=== PATIENT | female | born 2000 | race Caucasian/White ===

== ENCOUNTER → 2021-04-25 09:24 | Outpatient (CLI) | payer OTHER, SELFPAY ==
--- NOTE | 2021-04-25 09:27 | DI.US.S_ITS ---
PROCEDURE: US PELVIC COMPLETE INDICATIONS: PELVIC PAIN AND DYSMENORRHEA TECHNIQUE: Real-time scanning was performed of the pelvic organs, with image documentation. Additional endovaginal scanning was necessary due to incomplete visualization of the adnexal and endometrial structures by transabdominal scanning. COMPARISON: None. FINDINGS: Uterus: Uterus is normal in size at 6.2 x 4.6 x 3.6 cm. The endometrium measures 2 mm in combined thickness. Incidental note is made of nabothian cysts. Ovaries: The right ovary measures 4.9 x 3.5 x 2.6 cm and demonstrates a likely hemorrhagic cyst that measures 3.1 x 2.6 x 2.1 cm. The left ovary measures 3.2 x 2.6 x 1.7 cm. The ovaries otherwise have a normal sonographic appearance. No adnexal masses are seen. Other: No pathologic free abdominal or pelvic fluid. IMPRESSION: Likely 3.1 cm hemorrhagic cyst of the right ovary. If it would be clinically appropriate, a followup pelvic ultrasound could be considered in 6 weeks to assure resolution/ improvement. Dictated by: Jose Vides M.D. on 04/25/2021 at 9:15 Approved by: Jose Vides M.D. on 04/25/2021 at 9:17
== END ==
PROVIDERS: Referring Provider Obstetrics & Gynecology; Visit Provider Obstetrics & Gynecology
DX: R10.2 Pelvic and perineal pain (principal); N94.6 Dysmenorrhea, unspecified
CPT/HCPCS: 76830; 76856

== ENCOUNTER → 2021-07-05 16:32 | Outpatient (CLI) | payer OTHER, SELFPAY ==
[2021-07-05 17:27] LABS: COVID19 -Nasal RAPID Negative (Negative)
== END ==
PROVIDERS: Visit Provider Obstetrics & Gynecology
DX: Z01.812 Encounter for preprocedural laboratory examination (principal); Z20.822 Contact with and (suspected) exposure to COVID-19
CPT/HCPCS: 87635

== ENCOUNTER 2021-07-06 11:49 | Day surgery (SDC) | payer OTHER, SELFPAY ==
[2021-07-03 09:40] VITALS: BMI 23.3
[2021-07-06] VITALS (7 sets, daily range): BP systolic 102–118; BP diastolic 62–75; PULSE 57–82; RESP 14–19; TEMP 35.9–37.1; O2SAT 98–100; BMI 23.3
[2021-07-06] MEDS: LACTATED RINGERS 1,000 ML 42 ML IV (12:26)
--- NOTE | 2021-07-06 13:18 | PM.PREOP ---
Pre-operative Note COVID-19 COVID-19 status: Negative Result date/Date tested (Pos, Neg/Pending): 07/05/21 Interval Note History & Physical reviewed/Exam performed by Physician: Yes Changes to H&P: No
--- NOTE | 2021-07-06 13:44 | SUR.OPER ---
Lithotomy on padded OR bed, head on pillow, arms padded with gelpad and tucked at patient's dies. . Legs secured in padded yellow fins stirrups.
[2021-07-06] MEDS: BUPIVACAINE 0.5% W/ EPI (PF) 30 ML VIAL INJ (13:51)
[2021-07-06] MEDS: fentaNYL 100 MCG/2 ML INJ IV (14:21)
--- NOTE | 2021-07-06 14:25 | PM.GYNOP.1 ---
Operative Date/Time/Diagnoses Date of procedure: 07/06/21 Time of procedure: 13:30 Pre-op diagnosis: Chronic pelvic pain Dysmenorrhea Post-op diagnosis: same Procedure & Clinicians Procedure: Procedures Operation Date: 07/06/21 12:45 Actual Procedure Side Surgeon john RÍOS Laparoscopy Not Applicable Cedric Fink MD Indications: Martha is a 21-year-old G0, LMP 05/31/2021 who presented last month for evaluation of progressively severe pelvic pain and cramps with her menses.? The patient experienced menarche at age 10 and had regular menstrual cycles throughout her early life.? Her cramps during those periods were minimal, did not require treatment and she did not miss school or other engagements because of menstrual pain.? At approximately age 14 she began using contraception consisting of the patch which she discontinued because it kept falling off and oral contraceptives which she discontinued because she kept forgetting to take them.? At age 17 she had a Mirena IUD inserted and had no issues with it whatsoever.? She became essentially on menorrhea with only occasional spotting.? Unfortunately approximately 3 years after its insertion, the patient began having infrequent episodes of bleeding which were associated with severe pain.? These began our on her initial deployment in the [place] and resulted in her losing approximately 40 lb during that time.? She had extensive bright red bleeding, clots, and dark red blood with the pain resulting in numerous visits to sick call and limitations of duty.? 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 She return from deployment and in late December 2020 her IUD was removed and she was initiated on oral contraceptives which she only took for about 3 weeks.? Since that time her periods have become even more irregular with approximately 3-5 days of flow so she had with bloating and severe pain which required hospitalization several weeks ago at [facility].? No diagnosis was made and the patient's pain has continued along with the irregular bleeding.? She also notes that in the last year she has had progressively severe deep dyspareunia which is new.? She denies any post coital bleeding or intermenstrual spotting.? She is not now using any formal contraception and has not conceived in the last 4 months.? Patient's Pap smears have all been normal with her most recent Pap in 2019.? Patient does have a family history of a maternal grandmother with ovarian cancer but no breast cancer in the family.? Pelvic ultrasound performed 04/25/2021 only shows a 3.1 cm hemorrhagic cyst of the right ovary.? After discussion of all options the patient desires to proceed with diagnostic laparoscopy and probable fulguration/excision of pelvic endometriosis.? She is currently scheduled to have her surgery performed at [facility] on 07/06/2021 and presents today for her scheduled surgery. Surgeon: Cedric Fink Anesthesia Type: General Operative Notes Findings: The uterus is midplane and normal in size and shape. There is a 0.5 cm subserosal fibroid arising from the right anterolateral aspect of the fundus. Both fallopian tubes appeared to be normal in their entirety and if Saumya a appear normal bilaterally. Both ovaries are completely unremarkable, normal size, with no suggestion of internal cyst formation and no abnormalities on the ovarian surfaces. The ovarian fossa on both sides appear normal. There was no evidence of adhesions or endometriosis in the posterior cul-de-sac. There are occasional scattered clear blebs on the peritoneal surfaces in the posterior cul-de-sac but no scarring or classic powder rich seen. The anterior cul-de-sac is similarly unremarkable. The appendix was fully visualized and normal in appearance. The upper abdomen was inspected laparoscopically and also seen to be completely normal to laparoscopic visualization. Closure Type: primary Specimen(s): none Estimated blood loss (mL): 5 Blood products transfused: none Procedure in detail: With the patient under satisfactory general endotracheal anesthesia in the modified dorsal lithotomy position, the perineum vagina and abdomen were prepped and draped in the usual manner for laparoscopy. A sponge stick was inserted in the vagina. A pre-surgical safety time-out was then taken in accordance with [facility] protocols. The umbilicus was then infiltrated with 0.5% Marcaine with epinephrine and a 5 mm vertical umbilical incision was made. A Veress needle was then used to insufflate the abdomen with carbon dioxide once insufflated a 5 mm bladeless trocar and sleeve were inserted through the umbilical incision. Presence of the port inside the abdominal cavity was confirmed laparoscopically. A 2nd 3rd 5 mm laparoscopic port was placed in the right and left mid quadrants using a similar technique. Using a 3 puncture technique and a sponge stick in the vagina for mobilization of the cervix, the entire abdomen and pelvis were thoroughly inspected with the findings as noted previously. There being no findings which were clinically consistent with the patient's pain, no biopsies or fulguration was performed. The pelvis and abdomen were photographically documented and the operation was then terminated by venting of the pneumoperitoneum and removal of the port sleeves. Each port incision was then closed using 4-0 Monocryl with an inverted interrupted stitch and appropriate dressings were applied. Patient was then awakened and transferred to the PACU for a period of observation and recovery. Complications experience none, EBL 5 cc. Complications: none Post-operative Condition: stable Disposition: PACU Plan for aftercare: Routine postoperative care. Follow-up will be in 2 weeks.
[2021-07-06] MEDS: OXYCODONE/ACETAMINOPHEN 5/325 TABLET 1 TAB PO (14:41)
== END 2021-07-06 15:03 | disposition home or self-care (01) ==
PROVIDERS: Referring Provider Obstetrics & Gynecology; Visit Provider Obstetrics & Gynecology
PROC: (CPT 49320; principal; 2021-07-06 12:45)
DX: N94.6 Dysmenorrhea, unspecified (principal); F17.210 Nicotine dependence, cigarettes, uncomplicated
CPT/HCPCS: 49320; 81025; J0330; J1100; J1885; J2405; J2704; J3010

== ENCOUNTER 2021-07-10 17:41 | Emergency (ER) | payer OTHER, SELFPAY ==
[2021-07-10 18:08] VITALS: BP 137/65; PULSE 85; RESP 20; TEMP 36.8; O2SAT 98; BMI 22.8
--- NOTE | 2021-07-10 18:12 | DI.RAD.S_ITS ---
PROCEDURE: XR CHEST 1V INDICATIONS: chest pain TECHNIQUE: One view of the chest was acquired. COMPARISON: None. FINDINGS: Surgical changes and devices: None. Lungs and pleura: Lungs are clear. No pleural effusions or pneumothorax. Mediastinum: Mediastinal contours appear normal. Heart size is normal. Bones and chest wall: No suspicious bony lesions. Overlying soft tissues appear unremarkable. IMPRESSION: No acute cardiopulmonary abnormality Dictated by: Jersey Nava M.D. on 07/10/2021 at 18:49 Approved by: Jersey Nava M.D. on 07/10/2021 at 18:50
[2021-07-10 18:44] LABS: Add Manual Diff / Slide Review NO; Basophils Absolute Auto 0 /uL (0-100); Basophils Percent Auto 0.5 % (0-2); Eosinophils Absolute Auto 300 /uL (0-450); Eosinophils Percent Auto 3.8 % (2-4); Hematocrit 40.8 % (36-46); Hemoglobin 14.1 g/dL (12.0-16.0); Lymphocytes Absolute Auto 2200 /uL (1100-4500); Lymphocytes Percent Auto 28.7 % (25-40); Mean Corpuscular HGB Conc 34.6 % (30-36); Mean Corpuscular Hemoglobin 28.4 PG (26-34); Mean Corpuscular Volume 82.1 fL (80-100); Monocytes Absolute Auto 500 /uL (0-900); Monocytes Percent Auto 6.3 % (3-14); Neutrophils Absolute Auto 4600 /uL (1500-7000); Neutrophils Percent Auto 60.7 % (50-75); Platelet Count 290 X10^3/uL (150-400); Red Blood Cell Count 4.97 X10^6/uL (4.0-5.2); Red Cell Distribution Width 12.9 % (11.6-14.8); White Blood Cell Count 7.6 X10^3/uL (4.5-11.0)
[2021-07-10 18:52] LABS: COVID19 -Nasal RAPID Negative (Negative)
[2021-07-10 19:11] LABS: Alanine Aminotransferase 20 IU/L (<35); Albumin 4.6 g/dL (3.5-5.0); Albumin Globulin Ratio 1.3 (1.0-2.8); Alkaline Phosphatase 42 U/L (38-126); Aspartate Aminotransferase 24 IU/L (14-36); BUN Creatinine Ratio 18.3 (6-22); Bilirubin Total 0.5 mg/dL (0.2-1.3); Blood Urea Nitrogen 13 mg/dL (7-17); Calcium 9.8 mg/dL (8.4-10.2); Carbon Dioxide 29 mmol/L (22-32); Chloride 103 mmol/L (98-107); Creatine Kinase 30 U/L (30-135); Estimated Glomerular Filt Rate > 60.0 mL/min (>60); Globulin 3.6 g/dL (1.7-4.1); Glucose 96 mg/dL (70-100); HEMOLYSIS 21 (0-50); Lipase 41 U/L (23-300); Magnesium 1.8 mg/dL (1.6-2.3); Sodium 136 mmol/L (137-145); Total Protein 8.2 g/dL (6.3-8.2)
[2021-07-10 19:22] LABS: Troponin I < 0.012 ng/mL (0.01-0.034)
[2021-07-10 21:03] VITALS: BP 130/83; PULSE 79; RESP 24; O2SAT 100
--- NOTE | 2021-07-10 21:19 | ED_ITS ---
HPI - Chest Pain General Chief Complaint: Chest Pain Stated Complaint: Surgery 07/06, Chest Fullness/Pain, Neck Pain Time Seen by Provider: 07/10/21 21:02 Source: patient Mode of arrival: Ambulatory Limitations: no limitations History of Present Illness HPI narrative: Patient is a 21-year-old female who less than 1 week ago had a exploratory laparoscopy for evaluation of potential endometriosis secondary to chronic pelvic pain. She states she was told that she does not have endometriosis. She does have some generalized abdominal tenderness but she feels like this is improving. Within the past couple days she has developed some chest discomfort and left-sided neck pain fullness in her chest. Has not tried anything for the symptoms prior to arrival. Is not worse with palpation or movement or breathing. Related Data Previous Rx's Medication Instructions Recorded oxycodone-acetaminophen 5 mg-325 1 tab PO Q4H PRN #12 tab 07/06/21 mg tablet (Percocet) Allergies Allergy/AdvReac Type Severity Reaction Status Date / Time No Known Drug Allergies Allergy Unverified 06/27/21 16:16 Review of Systems Constitutional Constitutional: Denies fever(s) Cardiovascular Cardiovascular: Reports system reviewed and no additional complaints, except as documented Respiratory Respiratory: Reports system reviewed and no additional complaints, except as documented Gastrointestinal Gastrointestinal: Reports as per HPI and Reports system reviewed and no additional complaints, except as documented Integumentary/Breasts Skin/Breast: Reports system reviewed and no additional complaints, except as documented Neurologic Neurologic: Reports system reviewed and no additional complaints, except as documented Hematologic/Lymphatic On Anticoagulants: No Patient History Medical History Dysmenorrhea Pelvic pain in female Family History Father Hypertension Mother Mental health problem Anxiety Sister Mental health problem Eating disorder Social History household members: significant other Smoking Status: Never smoker Smoking Status: Never smoker alcohol intake frequency: a few times a month Substance Use Type: does not use Exam Initial Vital Signs Initial Vital Signs: Vital Signs Temperature 98.2 F 07/10/21 18:08 Pulse Rate 85 07/10/21 18:08 Respiratory Rate 20 07/10/21 18:08 Blood Pressure 137/65 07/10/21 18:08 Pulse Oximetry 98 07/10/21 18:08 Const General: cooperative, healthy appearing and comfortable HENMT Head: normal to inspection and normocephalic Resp Effort & Inspection: normal respiratory effort Auscultation: clear to auscultation bilaterally Cardio Rate: regular rate Rhythm: regular rhythm GI Inspection: normal to inspection Palpation: soft, No firm, No guarding and tender Skin General: no rashes or lesions noted Neuro General: patient alert, patient awake and moves all extremities Speech: speech normal Extrem General: normal to inspection and capillary refill normal Psych Appearance: grossly normal and well kempt Course Orders Ordered: ED Orders 07/10/21 18:12 XR chest 1V Stat EKG-12 Lead Stat 07/10/21 18:15 COVID19 -Nasal swab/Pre-Proc Stat 07/10/21 18:29 Complete Blood Count AUTO DIFF Stat Comprehensive Metabolic Panel Stat Lipase Stat Magnesium Stat Troponin & CK Cardiac Panel Stat Vital Signs Vital signs: Vital Signs - 8 hr 07/10/21 21:03 Pulse Rate 79 Respiratory Rate 24 Blood Pressure 130/83 Pulse Oximetry 100 MDM - Chest Pain Lab Data Attestation: I reviewed the patient's lab results. Result diagrams: 07/10/21 18:29 07/10/21 18:29 Labs: Lab Results 07/10/21 07/10/21 07/10/21 Range/Units 18:15 18:29 18:29 WBC 7.6 (4.5-11.0) X10^3/uL RBC 4.97 (4.0-5.2) X10^6/uL Hgb 14.1 (12.0-16.0) g/dL Hct 40.8 (36-46) % MCV 82.1 (80-100) fL MCH 28.4 (26-34) PG MCHC 34.6 (30-36) % RDW 12.9 (11.6-14.8) % Plt Count 290 (150-400) X10^3/uL Neut % (Auto) 60.7 (50-75) % Lymph % (Auto) 28.7 (25-40) % [place] % (Auto) 6.3 (3-14) % Eos % (Auto) 3.8 (2-4) % Baso % (Auto) 0.5 (0-2) % Neut # (Auto) 4600 (2761-9392) /uL Lymph # (Auto) 2200 (1267-9112) /uL [place] # (Auto) 500 (0-900) /uL Eos # (Auto) 300 (0-450) /uL Baso # (Auto) 0 (0-100) /uL Sodium 136 L (137-145) mmol/L Potassium 4.0 (3.4-5.1) mmol/L Chloride 103 (98-107) mmol/L Carbon Dioxide 29 (22-32) mmol/L BUN 13 (7-17) mg/dL Creatinine 0.71 (0.52-1.04) mg/dL Estimated GFR > 60.0 (>60) mL/min BUN/Creatinine Ratio 18.3 (6-22) Glucose 96 (70-100) mg/dL Calcium 9.8 (8.4-10.2) mg/dL Magnesium 1.8 (1.6-2.3) mg/dL Total Bilirubin 0.5 (0.2-1.3) mg/dL AST 24 (14-36) IU/L ALT 20 (<35) IU/L Alkaline Phosphatase 42 (38-126) U/L Total Creatine Kinase 30 (30-135) U/L CK-MB (CK-2) TNP CK-MB (CK-2) Rel Index TNP Troponin I < 0.012 (0.01-0.034) ng/mL Total Protein 8.2 (6.3-8.2) g/dL Albumin 4.6 (3.5-5.0) g/dL Globulin 3.6 (1.7-4.1) g/dL Albumin/Globulin Ratio 1.3 (1.0-2.8) Lipase 41 (23-300) U/L SARS-CoV-2 (PCR) Negative (Negative) Imaging Data Chest x-ray: Radiologist's Impression: [address] [address] XRay Report Signed Patient: Martha Bradshaw MR#: [id number] : 2000 Acct:[id number] Age/Sex: 21 / F Date of Service: 07/10/21 Loc: ED Accession Number: [id number] ?? Procedure: XR chest 1V Ordering Provider: Aguila Ellison D.O. PROCEDURE:? XR CHEST 1V ? INDICATIONS:? chest pain ? TECHNIQUE:? One view of the chest was acquired.? ? COMPARISON:? None. ? FINDINGS:? ? Surgical changes and devices:? None.? ? Lungs and pleura:? Lungs are clear.? No pleural effusions or pneumothorax.? ? Mediastinum:? Mediastinal contours appear normal.? Heart size is normal.? ? Bones and chest wall:? No suspicious bony lesions.? Overlying soft tissues appear unremarkable.? ? IMPRESSION:? No acute cardiopulmonary abnormality ? ? Dictated by: Jersey Nava M.D. on 07/10/2021 at 18:49 ? ? Approved by: Jersey Nava M.D. on 07/10/2021 at 18:50? ECG Data Attestation: I personally reviewed and interpreted this ECG as follows: Interpretation: Sinus rhythm Ventricular rate of 98 Normal axis Normal QRS Normal QTC Inverted T-waves lead to 3 AVF and V3 No ST changes MDM Narrative Medical decision making narrative: Labs are unremarkable, chest x-ray is unremarkable, troponin is negative. Nonspecific changes on her EKG. Do suspect that her symptoms are related to her recent procedure. Low suspicion for pulmonary embolism based on her presentation today. I feel that we can hold on further workup for now. I did discuss this with her. Did discuss strict return precautions and follow-up instructions. She expressed understanding and agreement. Discharge Plan Departure Patient Disposition: Home Clinical Impression: Atypical chest pain Instructions: DI for Atypical Chest Pain Activity Restrictions/Additional Instructions: I recommend that you continue to follow all of the postoperative instructions given to you by the surgeon. Keep all of your scheduled medical appointments. Return to the emergency department for any new or worsening symptoms. Prescriptions: No Action oxycodone-acetaminophen [Percocet] 5-325 mg tablet 1 tab PO Q4H PRN (Reason: pain) Qty: 12 0RF Referrals: Wilfrido Diaz [Primary Care Provider] -
== END 2021-07-10 21:24 | disposition home or self-care (01) ==
PROVIDERS: Emergency Provider Emergency Medicine
DX: R07.89 Other chest pain (principal); Z20.822 Contact with and (suspected) exposure to COVID-19
CPT/HCPCS: 36415; 71045; 80053; 82550; 83690; 83735; 84484; 85025; 87635; 93005; 99283; 99284; C9803

== ENCOUNTER → 2021-08-28 12:25 | Outpatient (CLI) | payer OTHER, SELFPAY ==
[2021-08-28 13:05] LABS: Add Manual Diff / Slide Review NO; Basophils Absolute Auto 0 /uL (0-100); Basophils Percent Auto 0.5 % (0-2); Eosinophils Absolute Auto 100 /uL (0-450); Eosinophils Percent Auto 1.4 % (2-4); Hemoglobin 12.1 g/dL (12.0-16.0); Lymphocytes Absolute Auto 1700 /uL (1100-4500); Lymphocytes Percent Auto 25.2 % (25-40); Mean Corpuscular HGB Conc 33.6 % (30-36); Mean Corpuscular Hemoglobin 27.9 PG (26-34); Mean Corpuscular Volume 83.1 fL (80-100); Monocytes Absolute Auto 400 /uL (0-900); Monocytes Percent Auto 5.6 % (3-14); Neutrophils Absolute Auto 4600 /uL (1500-7000); Neutrophils Percent Auto 67.3 % (50-75); Platelet Count 281 X10^3/uL (150-400); Red Blood Cell Count 4.34 X10^6/uL (4.0-5.2); Red Cell Distribution Width 13.3 % (11.6-14.8); White Blood Cell Count 6.8 X10^3/uL (4.5-11.0)
[2021-08-28 13:54] LABS: HCG Quantitative /Beta subunit 8270.7 mIU/mL
[2021-08-28 14:05] LABS: Appearance Urine UA CLEAR; Bilirubin Urine UA NEGATIVE (NEGATIVE); Color Urine UA YELLOW; Glucose Urine UA NEGATIVE (Negative); Ketones Urine UA NEGATIVE (NEGATIVE); Leukocyte Esterase Urine UA NEGATIVE (NEGATIVE); Nitrite Urine UA NEGATIVE (Negative); Occult Blood Urine UA NEGATIVE (Negative); Protein Urine UA NEGATIVE (Negative); Specific Gravity Urine UA 1.015 (1.000-1.035); Urobilinogen Urine UA 0.2 E.U./dL (0.2)
[2021-08-28 17:56] LABS: Hepatitis B Surface Antigen NEGATIVE s/c (NEGATIVE); Rubella Antibody IgG 36.9 IU/mL (>15)
[2021-08-28 18:54] LABS: HIV 1 & 2 Ab/Ag 4th Gen Combo NEGATIVE (NEGATIVE); Hep C Virus Ab w/Reflex Quant NEGATIVE s/c (NEGATIVE)
[2021-08-29 04:21] LABS: RPR Screen Non Reactive (Non Reactive)
[2021-08-29 05:42] LABS: Varicella IgG Antibody 736 index (Immune >165)
== END ==
PROVIDERS: Referring Provider Obstetrics & Gynecology; Visit Provider Obstetrics & Gynecology
DX: Z34.00 Encounter for supervision of normal first pregnancy, unspecified trimester (principal)
CPT/HCPCS: 36415; 80055; 81003; 84702; 86787; 86803; 86850; 86900; 86901; 87077; 87086; 87389

== ENCOUNTER → 2021-09-21 08:50 | Outpatient (CLI) | payer OTHER, SELFPAY ==
--- NOTE | 2021-09-21 08:51 | DI.US.S_ITS ---
PROCEDURE: US OB <= 14 WEEKS FETUS INDICATIONS: Viability and Dating OB OUTSIDE/PRIOR DATING DATA: Last menstrual period (LMP): 07/27/2021 LMP-based estimated date of delivery (ISA): 05/03/2022. First dating scan (date and location): 09/21/2021. Estimated date of delivery (ISA) from first dating scan: 04/27/2022. The calculations are made using the ultrasound ISA of 04/27/2022. TECHNIQUE: Real-time scanning was performed of the fetus and maternal pelvic organs, with image documentation. Endovaginal scanning was also performed to better visualize the fetus and maternal ovaries. COMPARISON: None. FINDINGS: Embryo: 2.2 cm, 8 weeks 6 days Heart rate: 175 Maternal organs: Ovaries within normal limits, with right corpus luteal cyst measuring 2.5 cm. IMPRESSION: 8 week 6 day single living IUP. We strive to produce accurate, complete, and clear reports of imaging services. To assist us in improving patient care, this report was composed using standard report templates and voice recognition software. Therefore, it may contain abnormal punctuation, insertions and/or omissions. Occasional wrong-word or sound-alike substitutions may occur. Though we review the report and make efforts to correct it, we do recommend that the report be read carefully in proper context to recognize any text inaccuracies. Dictated by: Zachary DON Interpreted: Shaheen Steele MD on 09/21/2021 at 10:58 Transcribed by: ADRIAN on 09/21/2021 at 10:59 Approved by: Shaheen Steele M.D. on 09/21/2021 at 12:42
== END ==
PROVIDERS: Referring Provider Obstetrics & Gynecology; Visit Provider Obstetrics & Gynecology
DX: Z34.91 Encounter for supervision of normal pregnancy, unspecified, first trimester (principal); Z3A.08 8 weeks gestation of pregnancy
CPT/HCPCS: 76801; 76817

== ENCOUNTER → 2021-09-26 10:56 | Outpatient (CLI) | payer OTHER, SELFPAY ==
[2021-09-26 15:11] LABS: Urine N gonorrhoeae NOT DETECTED
[2021-09-26 15:18] LABS: Urine Chlamydia NOT DETECTED
== END ==
PROVIDERS: Visit Provider Obstetrics & Gynecology
DX: Z34.81 Encounter for supervision of other normal pregnancy, first trimester (principal); Z3A.11 11 weeks gestation of pregnancy
CPT/HCPCS: 87491; 87591

== ENCOUNTER → 2021-09-27 10:53 | Outpatient (CLI) | payer OTHER, SELFPAY ==
[2021-09-27 12:42] LABS: HCG Quantitative /Beta subunit 56085 mIU/mL
== END ==
PROVIDERS: Referring Provider Obstetrics & Gynecology; Visit Provider Obstetrics & Gynecology
DX: O20.0 Threatened abortion (principal)
CPT/HCPCS: 36415; 84702

== ENCOUNTER 2021-10-04 20:09 | Emergency (ER) | payer OTHER, SELFPAY ==
[2021-10-04 20:15] VITALS: BP 119/70; PULSE 86; RESP 20; TEMP 37.1; O2SAT 98; BMI 25.1
[2021-10-04 21:47] VITALS: BP 117/66; PULSE 72; O2SAT 100
[2021-10-04 23:12] LABS: Add Manual Diff / Slide Review NO; Basophils Absolute Auto 0 /uL (0-100); Basophils Percent Auto 0.4 % (0-2); Eosinophils Absolute Auto 100 /uL (0-450); Eosinophils Percent Auto 1.9 % (2-4); Hematocrit 34.2 % (36-46); Hemoglobin 11.9 g/dL (12.0-16.0); Lymphocytes Absolute Auto 2400 /uL (1100-4500); Mean Corpuscular HGB Conc 34.8 % (30-36); Mean Corpuscular Hemoglobin 28.5 PG (26-34); Mean Corpuscular Volume 81.8 fL (80-100); Monocytes Absolute Auto 500 /uL (0-900); Monocytes Percent Auto 7.6 % (3-14); Neutrophils Absolute Auto 3900 /uL (1500-7000); Neutrophils Percent Auto 56.1 % (50-75); Platelet Count 246 X10^3/uL (150-400); Red Blood Cell Count 4.18 X10^6/uL (4.0-5.2); Red Cell Distribution Width 13.1 % (11.6-14.8)
[2021-10-04 23:21] LABS: Alanine Aminotransferase 11 IU/L (<35); Albumin Globulin Ratio 1.3 (1.0-2.8); Alkaline Phosphatase 38 U/L (38-126); Aspartate Aminotransferase 19 IU/L (14-36); BUN Creatinine Ratio 20.5 (6-22); Bilirubin Total 0.3 mg/dL (0.2-1.3); Blood Urea Nitrogen 9 mg/dL (7-17); Calcium 9.5 mg/dL (8.4-10.2); Carbon Dioxide 22 mmol/L (22-32); Chloride 107 mmol/L (98-107); Estimated Glomerular Filt Rate > 60.0 mL/min (>60); Glucose 98 mg/dL (70-100); HEMOLYSIS < 15 (0-50); Lipase 40 U/L (23-300); Potassium 3.7 mmol/L (3.4-5.1); Sodium 135 mmol/L (137-145)
--- NOTE | 2021-10-05 00:35 | ED.GENADULT ---
HPI - General Adult General Chief complaint: Urogenital-Female Stated complaint: cramping, back pain, dizzy, 11 weeks Time Seen by Provider: 10/05/21 00:35 Source: patient Mode of arrival: Ambulatory History of Present Illness HPI narrative: 21-year-old at 11 weeks presents with complaints of some low abdominal cramping, minor low back pain and some dizzy spells that have gotten worse this evening. She notes that dizzy spells are worse when she stands up and better when she sits down. She is able to eat and drink has tried to have quite a bit of water this evening and does note that she is feeling slightly better. She has not had any vaginal discharge specifically no bleeding. No dysuria. Minimal vomiting and no change to any of that. No fevers, cough, chills, headaches. Related Data Home Medications Medication Instructions Recorded Confirmed cholecalciferol (vitamin D3) 125 125 mcg PO DAILY 09/14/21 09/26/21 mcg (5,000 unit) capsule prenat.vits,jaylan,epp-btzw-tgrvd 1 tab PO DAILY 09/14/21 09/26/21 vitamin B complex (B 1 tab PO DAILY 09/14/21 09/26/21 Complex-Vitamin B12) Previous Rx's Medication Instructions Recorded ondansetron HCl 4 mg tablet 4 mg PO Q6H PRN #20 tab 09/11/21 Allergies Allergy/AdvReac Type Severity Reaction Status Date / Time No Known Drug Allergies Allergy Unverified 09/26/21 11:06 Review of Systems Review of Systems Narrative: Remainder of complete review of systems is otherwise unremarkable except for that included in the HPI. Patient History Medical History Anxiety Dysmenorrhea Pelvic pain in female Surgical History H/O laparoscopy History of mandibular surgery Family History Father Hypertension Asthma Mother Mental health problem Anxiety Placenta previa PVCs (premature ventricular contractions) Sister Mental health problem Eating disorder PVCs (premature ventricular contractions) Asthma Grandmother Breast cancer Social History marital status: unmarried,living together (October) household members: significant other lives independently: Yes housing: house pets and animals: Yes (Dog) education level: college occupational status: employed (active duty ) current occupational exposures/hazards: No simeon/oriental orthodox: Protestant special simeon needs: No seatbelt use: always water heater temp set < 120 deg: Yes (will check) working smoke detector in home: Yes fire extinguisher in home: Yes carbon monox detector in home: Yes firearms in home: Yes firearms unloaded and locked: Yes do you feel safe at home: Yes Smoking Status: Never smoker second hand exposure: No alcohol intake: former substance use type: does not use during the past year weight has: remained stable well-balanced diet: daily or most days daily servings fruits/ve-4 caffeine: Yes (limit 200mg) Type(s) of exercise: walking, regular exercise and yoga frequency: 3-4 times per week Smoking Status: Never smoker alcohol intake frequency: a few times a month Substance Use Type: does not use Exam Initial Vital Signs Initial Vital Signs: Vital Signs Temperature 98.7 F 10/04/21 20:15 Pulse Rate 86 10/04/21 20:15 Respiratory Rate 20 10/04/21 20:15 Blood Pressure 119/70 10/04/21 20:15 Pulse Oximetry 98 10/04/21 20:15 General: Healthy appearing, in no acute distress. Able to give a complete and coherent history. Well-nourished well-developed HEENT: Moist mucous membranes, normal sclera with reactive pupils, Respiratory: Lungs are clear to auscultation, no wheezing no rales no rhonchi. Full and symmetrical air movement Cardiac: Regular rate and rhythm no murmurs no bruits Abdomen: Soft, nontender, good bowel tones, no flank pain Skin: Warm and dry, no rashes Neurologic: Grossly neurologically intact with no obvious asymmetries or abnormalities Extremities: No trauma, well perfused Psych: Cooperative, appropriate insight and affect Bedside ultrasound: Single intrauterine fetus, heart rate at 160, the fetus is quite active. Lateral low-lying placenta with no evidence of subchorionic hemorrhage. Course Orders Ordered: ED Orders 10/04/21 21:45 EKG-12 Lead Stat 10/04/21 23:01 Complete Blood Count AUTO DIFF Stat Comprehensive Metabolic Panel Stat Lipase Stat Vital Signs Vital signs: Vital Signs - 8 hr 10/04/21 20:15 10/04/21 21:47 Temperature 98.7 F Pulse Rate 86 72 Respiratory Rate 20 Blood Pressure 119/70 117/66 Pulse Oximetry 98 100 Medical Decision Making Lab Data Result diagrams: 10/04/21 23:01 10/04/21 23:01 Labs: Lab Results 10/04/21 10/04/21 Range/Units 23:01 23:01 WBC 7.0 (4.5-11.0) X10^3/uL RBC 4.18 (4.0-5.2) X10^6/uL Hgb 11.9 L (12.0-16.0) g/dL Hct 34.2 L (36-46) % MCV 81.8 (80-100) fL MCH 28.5 (26-34) PG MCHC 34.8 (30-36) % RDW 13.1 (11.6-14.8) % Plt Count 246 (150-400) X10^3/uL Neut % (Auto) 56.1 (50-75) % Lymph % (Auto) 34.0 (25-40) % [place] % (Auto) 7.6 (3-14) % Eos % (Auto) 1.9 L (2-4) % Baso % (Auto) 0.4 (0-2) % Neut # (Auto) 3900 (9660-8351) /uL Lymph # (Auto) 2400 (0875-0547) /uL [place] # (Auto) 500 (0-900) /uL Eos # (Auto) 100 (0-450) /uL Baso # (Auto) 0 (0-100) /uL Sodium 135 L (137-145) mmol/L Potassium 3.7 (3.4-5.1) mmol/L Chloride 107 (98-107) mmol/L Carbon Dioxide 22 (22-32) mmol/L BUN 9 (7-17) mg/dL Creatinine 0.44 L (0.52-1.04) mg/dL Estimated GFR > 60.0 (>60) mL/min BUN/Creatinine Ratio 20.5 (6-22) Glucose 98 (70-100) mg/dL Calcium 9.5 (8.4-10.2) mg/dL Total Bilirubin 0.3 (0.2-1.3) mg/dL AST 19 (14-36) IU/L ALT 11 (<35) IU/L Alkaline Phosphatase 38 (38-126) U/L Total Protein 7.0 (6.3-8.2) g/dL Albumin 4.0 (3.5-5.0) g/dL Globulin 3.0 (1.7-4.1) g/dL Albumin/Globulin Ratio 1.3 (1.0-2.8) Lipase 40 (23-300) U/L Point of Care Testing Test Results Positive Urine Dip Bedside Urine Glucose Negative Bedside Urine Bilirubin - Negative Bedside Urine Ketone - Negative Urine Specific [place] 1.020 Bedside Urine Occult Blood - Negative Bedside Urine pH 6.0 Bedside Urine Protein - Negative Bedside Urine Urobilinogen - Negative Bedside Urine Nitrite - Negative Bedside Urine Leukocytes - Negative Esterase Point of care testing: Point of Care Testing Test Results Positive Urine Dip Bedside Urine Glucose Negative Bedside Urine Bilirubin - Negative Bedside Urine Ketone - Negative Urine Specific [place] 1.020 Bedside Urine Occult Blood - Negative Bedside Urine pH 6.0 Bedside Urine Protein - Negative Bedside Urine Urobilinogen - Negative Bedside Urine Nitrite - Negative Bedside Urine Leukocytes - Negative Esterase MDM Narrative Medical decision making narrative: 21-year-old woman 11 weeks with cramping and back pain. Lab work is reassuring without evidence of urinary tract infection no evidence of subchorionic hemorrhage or miscarriage. She is not significantly dehydrated nor tachycardic. Reassurance is given, labs are reviewed as is ultrasound in real-time. Questions are answered and she is safe for home discharge Discharge Plan Departure Patient Disposition: Home Clinical Impression: Pelvic cramping Qualifiers: Weeks of gestation: 11 weeks Qualified Code(s): Z3A.11 - 11 weeks gestation of Low back pain Qualifiers: Chronicity: acute Back pain laterality: midline Sciatica presence: without sciatica Qualified Code(s): M54.50 - Low back pain, unspecified Instructions: DI for -- Discomforts and Remedies Activity Restrictions/Additional Instructions: Thank you for coming in today I am not finding anything frightening or life-threatening today. Your blood work is reassuring and does not suggest acute dehydration or infection. There are no signs of bladder infection. The ultrasound that we did in the emergency department shows your little baby quite literally doing some results inside. There is no evidence of the placenta pulling up or away or any problems with your at this time. At this point, I would recommend Tylenol for the discomfort that your having and making sure that you remain well hydrated. If you notice at the cramping is getting worse or your having any vaginal bleeding or fluid leaking from your vagina you would be absolutely appropriate to return to the ER for further evaluation I hope your goes well Prescriptions: No Action ondansetron HCl 4 mg tablet 4 mg PO Q6H PRN (Reason: nausea and vomiting) Qty: 20 2RF prenat.vits,jaylan,sme-ngux-ceapd Tablet 1 tab PO DAILY 0RF cholecalciferol (vitamin D3) 125 mcg (5,000 unit) capsule 125 mcg PO DAILY 0RF vitamin B complex [B Complex-Vitamin B12] Tablet 1 tab PO DAILY 0RF Referrals: Cedric Fink MD [Primary Care Provider] -
[2021-10-05 00:58] VITALS: BP 106/55; PULSE 76; RESP 18; O2SAT 96
== END 2021-10-05 00:59 | disposition home or self-care (01) ==
PROVIDERS: Emergency Provider Emergency Medicine; PCP Obstetrics & Gynecology
DX: O26.891 Other specified pregnancy related conditions, first trimester (principal); R10.2 Pelvic and perineal pain; M54.50 Low back pain, unspecified; Z3A.11 11 weeks gestation of pregnancy
CPT/HCPCS: 80053; 81003; 81025; 83690; 85025; 99282; 99283

== ENCOUNTER → 2021-10-13 13:22 | Outpatient (CLI) | payer OTHER, SELFPAY ==
[2021-10-13 13:51] LABS: Appearance Urine UA SL CLOUDY; Bilirubin Urine UA NEGATIVE (NEGATIVE); Color Urine UA YELLOW; Glucose Urine UA NEGATIVE (Negative); Ketones Urine UA NEGATIVE (NEGATIVE); Leukocyte Esterase Urine UA NEGATIVE (NEGATIVE); Nitrite Urine UA NEGATIVE (Negative); Occult Blood Urine UA NEGATIVE (Negative); Protein Urine UA NEGATIVE (Negative); Specific Gravity Urine UA 1.015 (1.000-1.035); Urobilinogen Urine UA 0.2 E.U./dL (0.2)
[2021-10-13 13:52] LABS: Add Manual Diff / Slide Review NO; Basophils Absolute Auto 0 /uL (0-100); Basophils Percent Auto 0.4 % (0-2); Eosinophils Absolute Auto 100 /uL (0-450); Eosinophils Percent Auto 2.1 % (2-4); Hematocrit 34.3 % (36-46); Hemoglobin 11.8 g/dL (12.0-16.0); Lymphocytes Absolute Auto 1800 /uL (1100-4500); Lymphocytes Percent Auto 27.8 % (25-40); Mean Corpuscular HGB Conc 34.4 % (30-36); Mean Corpuscular Hemoglobin 28.3 PG (26-34); Mean Corpuscular Volume 82.3 fL (80-100); Monocytes Absolute Auto 400 /uL (0-900); Monocytes Percent Auto 6.6 % (3-14); Neutrophils Absolute Auto 4100 /uL (1500-7000); Neutrophils Percent Auto 63.1 % (50-75); Platelet Count 222 X10^3/uL (150-400); Red Blood Cell Count 4.16 X10^6/uL (4.0-5.2); Red Cell Distribution Width 12.8 % (11.6-14.8); White Blood Cell Count 6.5 X10^3/uL (4.5-11.0)
[2021-10-14 05:13] LABS: RPR Screen Non Reactive (Non Reactive)
[2021-10-14 13:10] LABS: Varicella IgG Antibody 581 index (Immune >165)
[2021-10-16 16:28] LABS: Hepatitis B Surface Antigen NEGATIVE s/c (NEGATIVE); Rubella Antibody IgG 30.6 IU/mL (>15)
[2021-10-16 16:45] LABS: HIV 1 & 2 Ab/Ag 4th Gen Combo NEGATIVE (NEGATIVE); Hep C Virus Ab w/Reflex Quant NEGATIVE s/c (NEGATIVE)
== END ==
PROVIDERS: PCP Obstetrics & Gynecology; Referring Provider Obstetrics & Gynecology; Visit Provider Obstetrics & Gynecology
DX: Z34.00 Encounter for supervision of normal first pregnancy, unspecified trimester (principal)
CPT/HCPCS: 36415; 80055; 81003; 86787; 86803; 86850; 86900; 86901; 87086; 87389

== ENCOUNTER → 2021-11-16 12:05 | Outpatient (CLI) | payer OTHER, SELFPAY ==
[2021-11-18 20:19] LABS: AFP, Serum 69.5 ng/mL (.); Calc Gestational Age Ultrasound (.); Estriol, Free 0.56 ng/mL (.); Inhibin A, Dimeric 66.95 pg/mL (.); Inhibin A, MoM 0.48 (.); Maternal Ethnicity Caucasian (.); Maternal Weight 170 lbs (.); Number of Fetuses No (.); OSBR Risk 1 IN 1477 (.); Test Results *Screen Positive* (.); hCG, MoM 0.38 (.); hCG, Serum 10867 mIU/mL (.)
[2021-11-22 13:44] LABS: Results Report (.)
== END ==
PROVIDERS: Referring Provider Obstetrics & Gynecology; Visit Provider Obstetrics & Gynecology
DX: Z34.02 Encounter for supervision of normal first pregnancy, second trimester (principal); Z3A.14 14 weeks gestation of pregnancy
CPT/HCPCS: 36415; 82105; 82677; 84702; 86336

== ENCOUNTER → 2021-11-28 10:00 | Outpatient (CLI) | payer OTHER, SELFPAY ==
[2021-11-28 11:26] LABS: Appearance Urine UA CLEAR; Bilirubin Urine UA NEGATIVE (NEGATIVE); Color Urine UA YELLOW; Glucose Urine UA NEGATIVE (Negative); Ketones Urine UA TRACE (NEGATIVE); Leukocyte Esterase Urine UA NEGATIVE (NEGATIVE); Nitrite Urine UA NEGATIVE (Negative); Occult Blood Urine UA NEGATIVE (Negative); Protein Urine UA NEGATIVE (Negative); Specific Gravity Urine UA 1.025 (1.000-1.035); Urobilinogen Urine UA 0.2 E.U./dL (0.2)
[2021-11-28 11:28] LABS: pH Urine UA 5.5 (4.5-8.0)
== END ==
PROVIDERS: Referring Provider Obstetrics & Gynecology; Visit Provider Obstetrics & Gynecology
DX: N39.0 Urinary tract infection, site not specified (principal)
CPT/HCPCS: 81003

== ENCOUNTER → 2021-12-08 12:06 | Outpatient (CLI) | payer OTHER, SELFPAY ==
--- NOTE | 2021-12-08 12:07 | DI.US.S_ITS ---
PROCEDURE: US OB >= 14 WEEKS FETUS INDICATIONS: 20 Week Anatomy Scan OUTSIDE/PRIOR DATING DATA: Last menstrual period (LMP): 07/27/2021 LMP-based estimated date of delivery (ISA): 05/03/2022 First dating scan (date and location): 09/21/2021 at [facility] Estimated date of delivery (ISA) from first dating scan: 04/27/2022 The calculations are made using the ultrasound ISA of 04/27/2022 TECHNIQUE: Real-time scanning was performed of the fetus, with image documentation and biometric measurements. Endovaginal scanning: Not performed. COMPARISON: [facility], US, OB <= 14 WEEKS FETUS, 09/21/2021, 9:35. FINDINGS: General: A single living intrauterine gestation is present. Presentation: Cephalic Placenta: Placental position is posterior, without previa. Amniotic fluid index: 15.8 cm, normal range is 5-24 cm. Single deepest vertical pocket is 5.9 cm. heart rate: 133 beats per minute. Maternal cervical canal: 3.4 cm long. Normal lower limit is 2.5 cm. biometrics: Biparietal diameter: 4.9 cm, 20 weeks 6 days Head circumference: 18.2 cm, 20 weeks 4 days Abdominal circumference: 15.6 cm, 20 weeks 5 days Femur length: 3.4 cm, 20 weeks 4 days Clinically estimated gestational age: 20 weeks 0 days Composite gestational age from present scan: 20 weeks 5 days Estimated weight and percentile: 367 grams, 80th percentile Anatomic survey: Neuro: Ventricles and choroid plexus are suboptimally visualized due to positioning of the head within the maternal pelvis. However, the visualized ventricles are non-dilated at less than 10 mm. Cisterna magna is normal at 3-11 mm. Cerebellum is normal in size and morphology. Nuchal skin fold: Normal at less than 6 mm between 14-21 weeks gestational age. Face: Nose and lips, facial profile are normal. Spine: No evidence for spina bifida. Heart: 4-chambered heart is present, with normal ventricular outflow tracts. Diaphragm: Diaphragm is intact. Stomach: Left-sided stomach is present. 8 mm mildly echogenic material seen within the distal stomach. Kidneys: No hydronephrosis. Normal is less than 5 mm in 2nd trimester, less than 7 mm in 3rd trimester. Cord: 3-vessel cord has orthotopic insertion. Placental cord insertion not well visualized due to location posterior to the fetus. Bladder: Normal in size. Extremities: All 4 extremities identified. IMPRESSION: 1. Single live intrauterine with appropriate interval growth. Estimated weight is 367 grams, 80th percentile for gestational age. 2. Nonspecific 0.8 cm echogenic area within the stomach is of uncertain clinical significance. Recommend attention on follow-up exams. 3. ventricles and placental cord insertion are suboptimally visualized. Recommend follow-up. We strive to produce accurate, complete, and clear reports of imaging services. To assist us in improving patient care, this report was composed using standard report templates and voice recognition software. Therefore, it may contain abnormal punctuation, insertions and/or omissions. Occasional wrong-word or sound-alike substitutions may occur. Though we review the report and make efforts to correct it, we do recommend that the report be read carefully in proper context to recognize any text inaccuracies. Dictated by: Eldon Claros M.D. on 12/08/2021 at 14:57 Approved by: Eldon Claros M.D. on 12/08/2021 at 15:09
== END ==
PROVIDERS: Referring Provider Obstetrics & Gynecology; Visit Provider Obstetrics & Gynecology
DX: Z34.82 Encounter for supervision of other normal pregnancy, second trimester (principal); Z3A.20 20 weeks gestation of pregnancy
CPT/HCPCS: 76811

== ENCOUNTER → 2022-02-01 11:15 | Outpatient (CLI) | payer OTHER, SELFPAY ==
[2022-02-01 13:22] LABS: Hematocrit 31.2 % (36-46); Hemoglobin 10.8 g/dL (12.0-16.0)
[2022-02-01 13:52] LABS: GTT (PREG) 1 Hour PP 50gm Dose 108 mg/dL (76-139)
== END ==
PROVIDERS: Referring Provider Obstetrics & Gynecology; Visit Provider Obstetrics & Gynecology
DX: Z34.92 Encounter for supervision of normal pregnancy, unspecified, second trimester (principal); Z3A.26 26 weeks gestation of pregnancy
CPT/HCPCS: 36415; 82950; 85014; 85018

== ENCOUNTER → 2022-02-19 15:51 | Outpatient (CLI) | payer OTHER, SELFPAY ==
--- NOTE | 2022-02-19 15:52 | DI.US.S_ITS ---
PROCEDURE: US OB FOLLOW UP INDICATIONS: FOLLOW UP ANATOMY OUTSIDE/PRIOR DATING DATA: Last menstrual period (LMP): 07/27/2021. LMP-based estimated date of delivery (ISA): 05/03/2022 First dating scan (date and location): 09/21/2021 Estimated date of delivery (ISA) from first dating scan: 04/27/2022. TECHNIQUE: Real-time scanning was performed of the fetus, with image documentation . Endovaginal scanning: Not indicated COMPARISON: [facility], OB <= 14 WEEKS FETUS, 09/21/2021, 9:35. [facility], OB >= 14 WEEKS FETUS, 12/08/2021, 12:22. FINDINGS: General: A single living intrauterine gestation is present. Presentation: Vertex. Placenta: Placental position is posterior, without previa. Amniotic fluid index: 16.8 cm, normal range is 5-24 cm. Single deepest vertical pocket is 6.2 cm. heart rate: 140 beats per minute. Maternal cervical canal: Not well seen on the current study. Clinically estimated gestational age: 30 weeks, 3 days Other: Bilateral corollary plexus and lateral ventricles are normal in size and appearance. stomach is seen and is within normal limits. Probable marginal superior umbilical cord insertion 1.4 cm from placental edge. IMPRESSION: 1. Single live intrauterine gestation with fetus in vertex presentation. heart rate is 140 beats per minute. Normal amount of amniotic fluid. 2. Bilateral ventricles and choroid plexus are normal in size and appearance. stomach is within normal limits. Cord insertion is 1.4 cm from placental edge. Continued sonographic follow-up is recommended. We strive to produce accurate, complete, and clear reports of imaging services. To assist us in improving patient care, this report was composed using standard report templates and voice recognition software. Therefore, it may contain abnormal punctuation, insertions and/or omissions. Occasional wrong-word or sound-alike substitutions may occur. Though we review the report and make efforts to correct it, we do recommend that the report be read carefully in proper context to recognize any text inaccuracies. Dictated by: Roosevelt Alcazar M.D. on 02/20/2022 at 8:45 Approved by: Roosevelt Alcazar M.D. on 02/20/2022 at 8:48
== END ==
PROVIDERS: Referring Provider Obstetrics & Gynecology; Visit Provider Obstetrics & Gynecology
DX: Z36.2 Encounter for other antenatal screening follow-up (principal); Z3A.30 30 weeks gestation of pregnancy
CPT/HCPCS: 76816

== ENCOUNTER 2022-03-18 15:17 | Outpatient (CLI) | payer OTHER, SELFPAY | END 2022-03-18 16:30 | disposition home or self-care (01) | LOC: OB 03-19 09:38 | PROVIDERS: Referring Provider Obstetrics & Gynecology; Visit Provider Obstetrics & Gynecology | DX: O26.893 Other specified pregnancy related conditions, third trimester (principal); R10.9 Unspecified abdominal pain; R10.2 Pelvic and perineal pain; Z3A.34 34 weeks gestation of pregnancy | CPT/HCPCS: 59025; G0378; G0379 ==

== ENCOUNTER → 2022-03-27 14:33 | Outpatient (CLI) | payer OTHER, SELFPAY ==
[2022-03-28 15:20] LABS: Strep Grp B PCR NEG for Grp B Strep
== END ==
PROVIDERS: Visit Provider Obstetrics & Gynecology
DX: Z34.03 Encounter for supervision of normal first pregnancy, third trimester (principal); Z3A.35 35 weeks gestation of pregnancy
CPT/HCPCS: 87653

== ENCOUNTER 2022-04-01 12:56 | Observation (INO) | payer OTHER, SELFPAY ==
[2022-04-01] MEDS: LACTATED RINGERS 1,000 ML 1000 ML IV ×2 (13:15→15:00)
[2022-04-01 13:36] LABS: Appearance Urine UA CLEAR; Bilirubin Urine UA NEGATIVE (NEGATIVE); Color Urine UA YELLOW; Glucose Urine UA NEGATIVE (Negative); Ketones Urine UA NEGATIVE (NEGATIVE); Leukocyte Esterase Urine UA NEGATIVE (NEGATIVE); Nitrite Urine UA NEGATIVE (Negative); Occult Blood Urine UA NEGATIVE (Negative); Protein Urine UA NEGATIVE (Negative); Specific Gravity Urine UA <=1.005 (1.000-1.035); Urobilinogen Urine UA 0.2 E.U./dL (0.2)
[2022-04-01 13:47] LABS: pH Urine UA 5.5 (4.5-8.0)
[2022-04-01 13:52] LABS: RBC Urine 0-1/HPF (0-5/HPF); Squamous Epithelial Cell Urine O (0-5/HPF); WBC Urine 0-1/HPF (0-5/HPF)
[2022-04-01 13:53] LABS: Bacteria Urine Occasional (0-1); Culture Indicated Urine Cult Not Indicated
[2022-04-01] MEDS: LOPERAMIDE 2 MG CAPSULE 4 MG PO (14:10)
== END 2022-04-01 16:05 | disposition home or self-care (01) ==
LOC: LABOR 12:59
PROVIDERS: Obstetrics & Gynecology; Admitting Provider Obstetrics & Gynecology; Referring Provider Obstetrics & Gynecology; Visit Provider Obstetrics & Gynecology
DX: O26.893 Other specified pregnancy related conditions, third trimester (principal); M54.9 Dorsalgia, unspecified; R19.7 Diarrhea, unspecified; R10.9 Unspecified abdominal pain; Z3A.36 36 weeks gestation of pregnancy
CPT/HCPCS: 59025; 59050; 81001; 96360; G0378; G0379

== ENCOUNTER 2022-04-27 14:45 | Observation (INO) | payer OTHER, SELFPAY | END 2022-04-27 16:00 | disposition home or self-care (01) | PROVIDERS: Admitting Provider Obstetrics & Gynecology; Referring Provider Obstetrics & Gynecology; Visit Provider Obstetrics & Gynecology | DX: O48.0 Post-term pregnancy (principal); Z3A.40 40 weeks gestation of pregnancy | CPT/HCPCS: 59025; G0378; G0379 ==

== ENCOUNTER 2022-04-27 20:31 | Inpatient (IN) | payer OTHER, SELFPAY ==
[2022-04-27 21:26] LABS: Add Manual Diff / Slide Review NO; Basophils Absolute Auto 0 /uL (0-100); Basophils Percent Auto 0.3 % (0-2); Eosinophils Absolute Auto 100 /uL (0-450); Eosinophils Percent Auto 1.3 % (2-4); Hematocrit 32.6 % (36-46); Hemoglobin 10.9 g/dL (12.0-16.0); Lymphocytes Absolute Auto 1900 /uL (1100-4500); Lymphocytes Percent Auto 19.2 % (25-40); Mean Corpuscular HGB Conc 33.5 % (30-36); Mean Corpuscular Volume 74.7 fL (80-100); Monocytes Absolute Auto 700 /uL (0-900); Monocytes Percent Auto 7.2 % (3-14); Neutrophils Absolute Auto 7300 /uL (1500-7000); Platelet Count 226 X10^3/uL (150-400); Red Blood Cell Count 4.36 X10^6/uL (4.0-5.2); White Blood Cell Count 10.2 X10^3/uL (4.5-11.0)
[2022-04-27 22:05] LABS: COVID19 -Nasal RAPID Negative (Negative)
[2022-04-27 22:08] VITALS: BP 133/77
[2022-04-27] MEDS: DINOPROSTONE VAG (CERVIDIL) 10 MG VAG (22:25)
[2022-04-28] MEDS: CALCIUM CARBONATE 500 MG TAB 1000 MG PO (03:06)
[2022-04-28] MEDS: DINOPROSTONE VAG (CERVIDIL) 10 MG VAG (14:04)
--- NOTE | 2022-04-28 14:30 | P.HPOB_ITS ---
OB HPI Date/Time Date of admission: 04/27/22 Date Patient Seen: 04/28/22 Time Patient Seen: 11:30 History of Present Condition Chief complaint: Induction ISA Calculator Estimated Delivery Date Method Current WG Current Estimate 04/27/22 Ultrasound #1 40w 1d Other Estimates 04/06/22 LMP (Uncertain) 43w 1d Estimated Gestational Age (weeks): 40+1 : 1 Para: 0 Narrative: Patient is a 22-year-old 1 para 0 at 40 and 1/7 weeks gestation status post Cervidil x1 last night. care: good care, initiated at week # (9), number of visits (14) and pounds weight gain (55) Dating criteria OB: LMP confirmed by 1st trimester US Ultrasounds: normal 1st trimester US and normal mid trimester US Obstetrical complications: other (calcified placenta) Medical complications OB: none Indications Indication for induction OB: other (very calcified placenta) Preadmission Labs Last OB Lab Results: Blood Type A Positive 04/27/22 21:00 Antibody Screen Negative 04/27/22 21:00 Hematocrit 32.6 % (36-46) L 04/27/22 21:00 Hemoglobin 10.9 g/dL (12.0-16.0) L 04/27/22 21:00 Hepatitis B Surface Antigen Negative s/c (NEGATIVE) 10/13/21 13 :32 Hepatitis C Antibody Negative s/c (NEGATIVE) 10/13/21 13:32 Rubella Antibody 30.6 IU/mL (>15) 10/13/21 13:32 Varicella-Zoster IgG Antibody 581 index (Immune >165) 10/13/21 13:32 Glucose 1 Hour 108 mg/dL (76-139) 02/01/22 11:20 Group B Streptococcus (PCR) Neg for grp b strep 03/27/22 14:33 -: Chlamydia screen: negative, Gonorrhea screen: negative and Urine: positive (lacto) -: PAP smear: Normal (2019) Genetic Screens: Quad screen: Normal External Labs -: Urine: positive (lacto) Evaluation Evaluation Baseline heart rate: 135 Variability: Moderate (11-25) monitor accelerations: Present Monitor Decelerations: Absent Contraction Frequency (minutes): 5 Uterine Contraction Intensity: Mild Status: Category l Dilation (cm): 1 Effacement (%): 60 station: -2 Position of cervix: mid Consistency: medium PFSH Medical History Anxiety Dysmenorrhea Pelvic pain in female Surgical History H/O laparoscopy History of mandibular surgery Family History Father Hypertension Asthma Mother Mental health problem Anxiety Placenta previa PVCs (premature ventricular contractions) Sister Mental health problem Eating disorder PVCs (premature ventricular contractions) Asthma Grandmother Breast cancer Social History marital status: unmarried,living together (October) household members: significant other lives independently: Yes housing: house pets and animals: Yes (Dog) education level: college occupational status: employed (active duty ) current occupational exposures/hazards: No simeon/orthodox: Uatsdin special simeon needs: No seatbelt use: always water heater temp set < 120 deg: Yes (will check) working smoke detector in home: Yes fire extinguisher in home: Yes carbon monox detector in home: Yes firearms in home: Yes firearms unloaded and locked: Yes do you feel safe at home: Yes Smoking Status: Former smoker second hand exposure: No alcohol intake: former substance use type: does not use during the past year weight has: remained stable well-balanced diet: daily or most days daily servings fruits/ve-4 caffeine: Yes (limit 200mg) Type(s) of exercise: walking, regular exercise and yoga frequency: 3-4 times per week Meds Home Medications and Allergies Home Medications Medication Instructions Recorded Confirmed Type ondansetron HCl 4 mg tablet 4 mg PO Q6H PRN nausea and 09/11/21 04/27/22 Rx vomiting #20 tabs cholecalciferol (vitamin D3) 125 125 mcg PO DAILY 09/14/21 04/27/22 History mcg (5,000 unit) capsule prenat.vits,jaylan,uju-ptaj-zymwe 1 tab PO DAILY 09/14/21 04/27/22 History vitamin B complex (B 1 tab PO DAILY 09/14/21 04/27/22 History Complex-Vitamin B12 tablet) taflsnjueo-elgdpsaykddpj-effiftfm 1 cap PO Q6H PRN headache #10 caps 11/27/21 04/27/22 Rx 50 mg-300 mg-40 mg capsule (Fioricet) esoefkxfea-adxvuumdexrju-wfjmacqa 2 cap PO Q4-6H PRN headache #30 11/29/21 04/27/22 Rx 50 mg-300 mg-40 mg capsule caps (Fioricet) Allergies Allergy/AdvReac Type Severity Reaction Status Date / Time No Known Drug Allergies Allergy Unverified 04/27/22 14:17 OB Exam Narrative Exam Narrative: Generally: Patient is sitting up in bed, no acute distress Fundus: Firm at 41 cm Estimated weight: 8.5 to 9 lb Extremities: Trace edema Objective Labs Result Diagrams: 04/27/22 21:00 Labs: Laboratory Results - last 24 hr 04/27/22 04/27/22 04/27/22 21:00 21:00 21:00 WBC 10.2 RBC 4.36 Hgb 10.9 L Hct 32.6 L MCV 74.7 L MCH 25.0 L MCHC 33.5 RDW 15.0 H Plt Count 226 Neut % (Auto) 72.0 Lymph % (Auto) 19.2 L [place] % (Auto) 7.2 Eos % (Auto) 1.3 L Baso % (Auto) 0.3 Neut # (Auto) 7300 H Lymph # (Auto) 1900 [place] # (Auto) 700 Eos # (Auto) 100 Baso # (Auto) 0 SARS-CoV-2 (PCR) Negative Blood Type A Positive Antibody Screen Negative Assessment and Plan Assessment and Plan Assessment and Plan narrative: Assessment: 22-year-old 1 para 0 at 40-,1/7 weeks gestation with significant calcification of the placenta on ultrasound Estimated weight 8.5-9 lb Unfavorable cervix Plan: Repeat Cervidil this morning Time Spent with Patient Total time spent with greater than 50% in coordination of care (as documented) at patient's floor/unit and/or counseling patient:: 15-24 minutes
[2022-04-29] MEDS: LACTATED RINGERS 1,000 ML 100 ML IV ×3 (03:36→18:10)
[2022-04-29] MEDS: OXYTOCIN PREMIX 30 UNIT/500 ML PLAST..BAG IV (03:40)
--- NOTE | 2022-04-29 11:26 | PM.OBPNLAB ---
Date/Time Date Patient Seen: 04/29/22 Time Patient Seen: 11:26 Pain Control Pain control: tolerating well Pelvic Exam Dilation (cm): 3 Effacement (%): 80 station: -1 Amniotic membrane status: Intact Contractions Contractions on admission: none Monitor mode: External Pitocin rate (mU/min): 8 Contraction frequency (min): 3 Contraction duration (min): 1 Contraction pattern: Irregular Contraction intensity: Mild Status status: Category l Heart Rate Baseline: 135 Monitor Accelerations: Present Monitor Decelerations: Absent Monitor Variability: Moderate Assessment and Plan Assessment: induction ongoing Comments: AROM with copious clear amniotic fluid Epidural prn Expectant management to
[2022-04-29] MEDS: guaiFENesin Solution 100 MG/5 ML UDC PO (16:02)
--- NOTE | 2022-04-29 20:20 | PM.OBPNLAB ---
Date/Time Date Patient Seen: 04/29/22 Time Patient Seen: 20:21 Pain Control Pain control: epidural Pelvic Exam Dilation (cm): 10 Effacement (%): 100 station: +1 Amniotic membrane status: Ruptured Contractions Monitor mode: External Pitocin rate (mU/min): 12 Contraction frequency (min): 3 Contraction duration (min): 1 Contraction pattern: Irregular Contraction intensity: Strong/Firm Status status: Category l Heart Rate Baseline: 135 Monitor Accelerations: Present Monitor Decelerations: Early Monitor Variability: Moderate Assessment and Plan Assessment: active labor Comments: Begin pusing Expectant management to
--- NOTE | 2022-04-29 22:09 | PM.OBPRVD ---
Events: Other (completely calcified placenta) Labor & Delivery Delivery date: 04/29/22 Cervical ripening method: per Cervidil protocol Induction method: per pitocin protocol Delivery augmentation: rupture of membranes Delivery monitor: external FHT and external uterine Route of delivery: vacuum extraction Indication for instrumentation: maternal exhaustion Episiotomy description: None L&D Laceration Description: Perineal - 2nd Degree Quantitative Blood Loss: 50 Anesthesia Type: Epidural Complications: None Narrative: Patient complete and pushed for 1 hour and 40 minutes. At 9:36 p.m., a live male infant delivered over an intact perineum, in the NITIN presentation, with vacuum assistance. There were 3 pulls with 1 pop-off. No nuchal cord. The remainder of the body delivered without difficulty and was placed on mom's abdomen. The cord was double clamped and cut. Cord bloods were obtained. Placenta delivered intact with a three-vessel cord at 9:44 p.m. Pitocin was given in the IV fluids. The fundus was massaged to firm. A second-degree perineal laceration was repaired in the usual fashion. Hemostasis was achieved. Apgars 8 at 1 minute and 9 at 5 minutes. 50 cc blood loss. . Epidural analgesia. Mom and stable to recovery. [place] Baby 1: Infant gender: Male Presentation: vertex Position: Right Occiput Anterior Placenta delivery description: Spontaneous Cord Vessel Description: 3 Vessels and Clamped/Cut score (1 min): 8 score (5 min): 9 weight: 8 lb 12 oz Plan for aftercare: Routine care
--- NOTE | 2022-04-30 00:05 | PATH_ITS ---
[facility] Accession Number: [id number] . 01 Material submitted: . placenta - CALCIFIED PLACENTA . 01 Diagnosis: Calcified Placenta: Placenta parenchyma: Weight: 499 grams. Chorionic villous maturation slightly less mature than for full-term placenta. Patchy calcification and fibrin are present and occupy approximately 10% of the placenta parenchyma. Moderate to patchy severe inter- and intravillous fibrin is present. No definite villitis identified. . Umbilical cord: Length: 65.6 cm. Centrally inserted. Three vessels present. No funisitis identified. . Membranes: Marginally inserted. Ruptured 3.1 cm from the placental disc margin. Patchy fibrin and calcification are present over approximately 30-40% of the apparent maternal surface and involve approximately 10% of the placental parenchyma. Mild, patchy plasma cells, non-specific etiology. MRV 05/03/2022 1445 Local . 01 Electronically signed: . Annia Blount MD, Pathologist NPI- [id number] . 01 Gross description: . The specimen is received in formalin labeled with the patient's name and placenta, and consists of a 499-gram discoid araujo placenta measuring 18.8 x 17.9 x 2.9 cm with no succenturiate lobes identified. The membranes insert at the margin and have a point of rupture 3.1 cm from the placental disc edge. The cord measures 65.6 cm in length and averages 1.1 cm in diameter with a central insertion. The cord has a leftward coil with an index of approximately 1 twist per 5 cm. Sectioning reveals unremarkable trivascular architecture. No knots are identified. The surface is blue-stevens with diffuse areas of pale firm discoloration located centrally and peripherally occupying approximately 40% of the surface. The vasculature is arborizing and unremarkable. The maternal surface is apparently complete and red-brown with diffuse areas of pale sanon firm discoloration consistent with calcification occupying approximately 30% of the maternal surface both peripherally and centrally. No adherent clot is identified. Sectioning reveals a red-brown spongy cut surface with minor areas of sanon firm discoloration associated with maternal surface discoloration occupying less than 10% of the cut surface. No lesions are identified. Design Sales Consultant sections are submitted as follows: . A1: Design Sales Consultant cord. A2: Membrane roll. A3: Full thickness surface discoloration located centrally. A4: Eccentric full-thickness section to include , maternal, and cut surface discolorations. A5: Full-thickness central section with maternal and cut surface discolorations. A6-A8: Design Sales Consultant normal central full-thickness sections. ([id number]) /MRV 05/03/2022 [facility] Local . 01 Pathologist provided ICD-10: Z34.90 . 01 CPT . 229797 Performed at: 01 [facility] [address] [place] [address] [address], [place], [place] [id number] MD Estuardo Whitfield MD Phone: [phone]
[2022-04-30] MEDS: ACETAMINOPHEN 325 MG TABLET 650 MG PO (05:03)
[2022-04-30] MEDS: IBUPROFEN 600 MG TABLET PO ×3 (05:03→22:49)
[2022-04-30 07:00] LABS: Hematocrit 30.7 % (36-46); Hemoglobin 10.1 g/dL (12.0-16.0)
[2022-04-30] MEDS: DERMOPLAST SPRAY 20% 60 ML 1 SPRAY TOP (09:12)
[2022-04-30] MEDS: DOCUSATE 100 MG CAPSULE PO (09:12)
[2022-04-30] MEDS: PRENATAL VIT,CALC/IRON/FOLIC 1 TABLET 1 TAB PO (09:12)
[2022-05-01] MEDS: IBUPROFEN 600 MG TABLET PO (06:37)
--- NOTE | 2022-05-19 19:12 | PM.OBDS.1 ---
Discharge Providers Provider Date of admission: 04/27/22 20:31 Discharge Date: 05/01/22 Primary care physician: Payton ALFARO Provider Consults: 04/30/22 22:07 Consult to Control Operator Flow Coat Routine Comment: Discharge provider: Vania Shrestha MD Summary Hospital Course Date Patient Seen: 05/01/22 Time Patient Seen: 07:40 Diagnoses: 40-1/7 weeks gestation Wlukt-lcv-exgvjdbfvkh-age Calcified placenta Cervidil cervical ripening Pitocin induction of labor Vacuum assisted vaginal delivery Second-degree perineal laceration Hospital Course: Patient is a 22-year-old 1 para 1 who presented on April 27, 2022 for cervical ripening at 40-,1/7 weeks gestation due to a calcified placenta. She received a Cervidil overnight on April 27, 2022. On the morning of April 28, 2022 her cervix was still unfavorable she received a second Cervidil. On April 29, 2022 she was 3 cm/80% effaced/-1 station. Artificial rupture of membranes was performed with copious clear amniotic fluid. She progressed to complete dilation and had a vacuum assisted vaginal delivery at 9:36 p.m. on April 29, 2022. She had a second-degree perineal laceration which was repaired. Her course was unremarkable. She was discharged home on May 01, 2022. Peripartum Data Infant Delivery Method: Assisted Delivery (Vacuum) Laceration Description: Perineal - 2nd Degree Episiotomy description: None Procedures: Cervidil cervical ripening x2 Pitocin induction of labor Artificial rupture of membranes Vacuum assisted vaginal delivery Second degree perineal laceration repair complications: none [place] 1: Gender: Male Disposition of : home Status at Discharge Cognitive/behavioral status at discharge: oriented Functional status at discharge: independent ambulation Overall status at discharge: patient is progressing back to baseline Time Spent with Patient Time attestation: Total time spent providing and/or coordinating discharge services: Time spent: Less than 30 minutes Objective Labs Result Diagrams: 04/30/22 06:40 Exam Narrative Exam Narrative: Generally: Patient is sitting up in bed, holding infant, no acute distress Fundus: Firm at U -1 Extremities: 1+ edema, negative Homans Discharge Plan Discharge Plan Patient Disposition: Home Provider Discharge Comment: Call with fever, chills or bleeding vaginally more than a pad in an hour Ibuprofen 600mg every 6 hours as needed for cramping Tylenol 650mg every 6 hours as needed Push fluids Discharge orders & Medications Prescriptions: Continued iughejavdz-kvdvzvghdbdhh-orha [Fioricet] 50-300-40 mg capsule 2 cap PO Q4-6H PRN (Reason: headache) Qty: 30 0RF Rx Instructions: do not exceed 6 caps per day prenat.vits,jaylan,pal-qqep-jeifj Tablet 1 tab PO DAILY cholecalciferol (vitamin D3) 125 mcg (5,000 unit) capsule 125 mcg PO DAILY vitamin B complex [B Complex-Vitamin B12] Tablet 1 tab PO DAILY Discontinued ondansetron HCl 4 mg tablet 4 mg PO Q6H PRN (Reason: nausea and vomiting) Qty: 20 2RF kyuyvszuqf-radyqpmpqtunj-jfpm [Fioricet] 50-300-40 mg capsule 1 cap PO Q6H PRN (Reason: headache) Qty: 10 0RF No Action (DME) Double Electric Breast Pump See Rx Instructions .Route .MEDSUPPLY Qty: 1 0RF Rx Instructions: With supplies double electric breast pump 1 ea topical .prn Qty: 1 0RF Rx Instructions: With supplies Follow up/Referrals: Vania Shrestha MD [Physician] - 6 Weeks (6 week post appointment on 06/12/2022 @ [address] Shrestha) ProviderPayton [Primary Care Provider] - Cedric Fink MD [Physician] - 06/12/22 9:15 am Diet/Activity/Treatments Diet: Regular Activity: Nothing in the vagina for 6 weeks Skin/Wound/Dressing Care Report to your healthcare provider any signs of infection, such as:: chills, fever, increased pain and unusual drainage Visit Report/Discharge Packet Instructions: DI for Labor and Delivery, Vaginal Stand Alone Forms: Discharge: Care Discharge Data Primary Care Provider: ProviderPayton
== END 2022-05-01 11:00 | disposition home or self-care (01) | DRG 807 ==
PROVIDERS: Admitting Provider Obstetrics & Gynecology; Referring Provider Obstetrics & Gynecology; Visit Provider Obstetrics & Gynecology
DX: O43.893 Other placental disorders, third trimester (principal); Z37.0 Single live birth; N81.89 Other female genital prolapse; Z3A.40 40 weeks gestation of pregnancy; O70.1 Second degree perineal laceration during delivery; Z20.822 Contact with and (suspected) exposure to COVID-19; O75.81 Maternal exhaustion complicating labor and delivery; O48.0 Post-term pregnancy
CPT/HCPCS: 36415; 59025; 59050; 59200; 59400; 59409; 85014; 85018; 85025; 86850; 86900; 86901; 87635; C9803; G0378; G0379; J2590

== ENCOUNTER 2022-07-31 20:24 | Emergency (ER) | payer OTHER, SELFPAY ==
[2022-07-31 20:32] VITALS: BP 148/78; PULSE 100; RESP 18; TEMP 36.6; O2SAT 97; BMI 29.5
--- NOTE | 2022-07-31 21:35 | DI.US.S_ITS ---
PROCEDURE: US PELVIC COMPLETE INDICATIONS: PAIN 3 MONTHS POST TECHNIQUE: Real-time scanning was performed of the pelvic organs, with image documentation. Additional endovaginal scanning was necessary due to incomplete visualization of the adnexal and endometrial structures by transabdominal scanning. COMPARISON: [facility], US, US PELVIC COMPLETE, 04/25/2021, 9:39. FINDINGS: Uterus: Uterus is anteverted and measures 9.6 x 4.8 x 6.3 cm. Endometrium measures up to 0.8 cm. No uterine mass lesions. There is a small amount of endocervical fluid. Nabothian cyst also noted in the cervix. Ovaries: The right ovary measures 3.4 x 3.3 x 2.1 cm, with a calculated ovarian volume of 12.1 cc. The left ovary measures 2.5 x 3.7 x 2.2 cm, with a calculated ovarian volume of 10.5 cc. Multiple, greater than 12 in each ovary, small peripheral follicles are demonstrated bilaterally. No adnexal masses. Other: There is a small amount of pelvic free fluid which appears within physiologic limits. IMPRESSION: 1. Multiple small peripheral follicles within the ovaries suggestive of polycystic ovarian syndrome in the appropriate clinical context. 2. Small amount of endocervical fluid noted. 3. Small nabothian cysts. We strive to produce accurate, complete, and clear reports of imaging services. To assist us in improving patient care, this report was composed using standard report templates and voice recognition software. Therefore, it may contain abnormal punctuation, insertions and/or omissions. Occasional wrong-word or sound-alike substitutions may occur. Though we review the report and make efforts to correct it, we do recommend that the report be read carefully in proper context to recognize any text inaccuracies. Dictated by: Estuardo Au M.D. on 07/31/2022 at 23:05 Approved by: Estuardo Au M.D. on 07/31/2022 at 23:08
[2022-07-31 23:08] VITALS: BP 111/67; PULSE 80; RESP 18; O2SAT 99
--- NOTE | 2022-08-01 00:39 | ED_ITS ---
HPI - General Adult General Chief complaint: Abdominal Pain Stated complaint: weakness, and cramping, lbp Time Seen by Provider: 07/31/22 21:39 Source: patient Mode of arrival: Ambulatory History of Present Illness HPI narrative: 22-year-old woman who presents with lower abdominal back pain. She has history of depression, she is 3 months uncomplicated vaginal delivery. She notes that she had had similar pain a number of years ago had a diagnostic laparoscopy which confirmed absence of endometriosis or pelvic pathology and symptoms resolved. She was doing well during her but after delivery she is having increasing pain. Over the last 6 weeks she notices that she is having difficulty standing straight particularly when she is holding her son and is finding it almost impossible to stand up and hold her child simultaneously. She states that since her delivery she has not been having regular bowel movements, typically every other day which is a change in bowel habits for her. She was seen 2 days ago at [facility] where she had a CT scan and blood work. CT scan showed no significant anomalies to explain her pain. Cbc and chemistry panel was unremarkable. In the following 48 hours she feels that she is gotten worse and comes in today wondering if a pelvic ultrasound might be revealing. She has had 2 menstrual cycles since her delivery has and has resumed sexual activity. Related Data Home Medications Medication Instructions Recorded Confirmed hydroxyzine HCl 25 mg tablet 25 mg PO DAILY 07/31/22 07/31/22 sertraline 25 mg tablet 25 mg PO DAILY 07/31/22 07/31/22 Allergies Allergy/AdvReac Type Severity Reaction Status Date / Time No Known Drug Allergies Allergy Verified 07/31/22 20:36 Review of Systems Review of Systems Narrative: Remainder of complete review of systems is otherwise unremarkable except for that included in the HPI. Patient History Medical History Anxiety Dysmenorrhea Pelvic pain in female Surgical History H/O laparoscopy History of mandibular surgery Family History Father Hypertension Asthma Mother Mental health problem Anxiety Placenta previa PVCs (premature ventricular contractions) Sister Mental health problem Eating disorder PVCs (premature ventricular contractions) Asthma Grandmother Breast cancer Social History marital status: unmarried,living together (October) household members: significant other lives independently: Yes housing: house pets and animals: Yes (Dog) education level: college occupational status: employed (active duty ) current occupational exposures/hazards: No simeon/adventist: Jehovah'S Witness special simeon needs: No seatbelt use: always water heater temp set < 120 deg: Yes (will check) working smoke detector in home: Yes fire extinguisher in home: Yes carbon monox detector in home: Yes firearms in home: Yes firearms unloaded and locked: Yes do you feel safe at home: Yes Smoking Status: Former smoker second hand exposure: No alcohol intake: former substance use type: does not use during the past year weight has: remained stable well-balanced diet: daily or most days daily servings fruits/ve-4 caffeine: Yes (limit 200mg) Type(s) of exercise: walking, regular exercise and yoga frequency: 3-4 times per week Smoking Status: Former smoker alcohol intake frequency: a few times a month Substance Use Type: does not use Exam Initial Vital Signs Initial Vital Signs: Vital Signs Temperature 98 F 07/31/22 20:32 Pulse Rate 100 H 07/31/22 20:32 Respiratory Rate 18 07/31/22 20:32 Blood Pressure 148/78 H 07/31/22 20:32 Pulse Oximetry 97 07/31/22 20:32 Oxygen Delivery Method 07/31/22 20:32 General: Healthy appearing, in no acute distress. Able to give a complete and coherent history. Well-nourished well-developed HEENT: Moist mucous membranes, normal sclera with reactive pupils, Respiratory: Lungs are clear to auscultation, no wheezing no rales no rhonchi. Full and symmetrical air movement Cardiac: Regular rate and rhythm no murmurs no bruits Axial skeleton: No significant pelvic torsion or uplift. No specific tenderness over ischial tuberosities Abdomen: Soft, nontender, good bowel tones, no flank pain Skin: Warm and dry, no rashes Neurologic: Grossly neurologically intact with no obvious asymmetries or abnormalities Extremities: No trauma, well perfused Psych: Cooperative, appropriate insight and affect Course Orders Ordered: ED Orders 07/31/22 21:35 US pelvic complete Stat Vital Signs Vital signs: Vital Signs - 8 hr 07/31/22 20:32 07/31/22 23:08 Temperature 98 F Pulse Rate 100 H 80 Respiratory Rate 18 18 Blood Pressure 148/78 H 111/67 Pulse Oximetry 97 99 Oxygen Delivery Method Room Air Room Air Medical Decision Making Lab Data Labs: Point of Care Testing Test Results Negative Urine Dip Bedside Urine Glucose Negative Bedside Urine Bilirubin - Negative Bedside Urine Ketone - Negative Urine Specific [place] 1.015 Bedside Urine Occult Blood - Negative Bedside Urine pH 6 Bedside Urine Protein - Negative Bedside Urine Urobilinogen - Negative Bedside Urine Nitrite - Negative Bedside Urine Leukocytes - Negative Esterase Point of care testing: Point of Care Testing Test Results Negative Urine Dip Bedside Urine Glucose Negative Bedside Urine Bilirubin - Negative Bedside Urine Ketone - Negative Urine Specific [place] 1.015 Bedside Urine Occult Blood - Negative Bedside Urine pH 6 Bedside Urine Protein - Negative Bedside Urine Urobilinogen - Negative Bedside Urine Nitrite - Negative Bedside Urine Leukocytes - Negative Esterase MDM Narrative Medical decision making narrative: CC: Back pain, this is a new problem in the setting of history of chronic back pain. Uncertain etiology and uncertain prognosis Complicating co-morbidities: Recent and vaginal delivery, prior back pain Corroborating data: Data collected from: patient, Social determinants of health that may influence the patients condition: New mother with infant at home Medical records reviewed: [facility] from [facility] from 48 hours ago are reviewed Differential considered: Musculoskeletal pain, endometriosis, PID, retained pro ducts of conception, appendicitis, diverticulitis, constipation, pyelonephritis, UTI Exam documented above, pertinent findings include: Mild tenderness in the low pelvis with no significant musculoskeletal abnormalities, no rebound tenderness. Certainly not a surgical abdomen Lab Test results independently reviewed as above. Pertinent findings: Labs are not repeated today as CBC and chemistries 48 hours ago are reviewed and were unremarkable Imaging studies independently reviewed: CT scan done 48 hours ago is reviewed and is unremarkable. Pelvic ultrasound is performed here and shows no significant abnormalities with normal ovaries, normal blood flow to ovaries and normal-appearing uterus without particularly thickened endometrium. Discussion: 22-year-old woman with recurrent low pelvic pain. She is had significant workup previously with recent labs, CT scan, prior laparoscopic surgery with similar episodes prior to recent and then I am wondering if this may be musculoskeletal in nature. We discussed using laxatives for the next day or 2 to see if cleaning out her bowels and getting back to daily bowel movements helps influence the pain at all. Also suggested referral to physical therapy, Jeffrey Rodas in [place] for manual therapy evaluation. [place] At this point she is safe for home discharge. All questions have been answered Disposition: see below, along with detailed discharge instructions that have been reviewed with patient as well as indications for ED re-evaluation and a dditional outpatient follow up Discharge Plan Departure Patient Disposition: Home Clinical Impression: Pelvic pain Low back pain Qualifiers: Chronicity: acute Back pain laterality: right Sciatica presence: without sciatica Qualified Code(s): M54.50 - Low back pain, unspecified Instructions: Chronic Pelvic Pain-Female Activity Restrictions/Additional Instructions: Thank you for coming in today Sorry you are struggling with this low back and pelvic pain. With a workup done between here and [place] 48 hours ago I do not think that you have any acute surgical abnormalities, no intra-abdominal or pelvic infections and no reason for hospitalization. It may be that constipation is contributing to this pain and I would recommend using the laxative you have available at home and see if you can get herself back to your usual daily bowel movements and see if this makes any difference. This may also be musculoskeletal in nature and I am going to suggest that you consider an appointment with Keaton Rodas, PT. he has a practice in [place] and does manual therapy. ?[address], [place] [address] ? If he is able to help it can be invaluable and if he is not you have not done anything that is dangerous or life-threatening. Hopefully he will be able to do some minor pelvic adjustments and you will find that your much more comfortable. If you find that you are getting worse or develop any new symptoms, please feel free to return to the emergency department for further evaluation. Prescriptions: No Action sertraline 25 mg tablet 25 mg PO DAILY hydroxyzine HCl 25 mg tablet 25 mg PO DAILY Referrals: ProviderPayton [Primary Care Provider] - Stand Alone Forms: Patient Portal/API
[2022-08-01 01:37] VITALS: BP 122/65; PULSE 87; RESP 16; O2SAT 98
== END 2022-08-01 01:48 | disposition home or self-care (01) ==
PROVIDERS: Emergency Provider Emergency Medicine
DX: R10.2 Pelvic and perineal pain (principal); M54.50 Low back pain, unspecified
CPT/HCPCS: 76830; 76856; 81003; 81025; 99283